=== PATIENT | male | born 1965 | race African-American/Black ===

== ENCOUNTER 2021-12-09 10:38 | Outpatient (CLI) | payer OTHER, SELFPAY ==
--- NOTE | 2021-12-09 11:15 | NEURO_ITS ---
Impression: # Complains of left thigh numbness. # Normal nerve conduction study with normal F-waves. # Normal needle/EMG exam. # Clinical correlation recommended. Nerve Conduction Studies Anti Sensory Summary Table Stim Site NR Peak (ms) P-T Amp (?V) Site1 Site2 Delta-P (ms) Dist (cm) Ranold (m/s) Left Sup Fibular Anti Sensory (Ant Lat Mall) 14 cm 3.1 12.5 14 cm Ant Lat Mall 3.1 16.0 52 Right Sup Fibular Anti Sensory (Ant Lat Mall) 14 cm 3.3 4.8 14 cm Ant Lat Mall 3.3 16.0 48 Left Sural Anti Sensory (Lat Mall) Calf 4.0 8.1 Calf Lat Mall 4.0 16.0 40 Right Sural Anti Sensory (Lat Mall) Calf 3.8 4.9 Calf Lat Mall 3.8 16.0 42 Motor Summary Table Stim Site NR Onset (ms) O-P Amp (mV) Site1 Site2 Delta-0 (ms) Dist (cm) Arnold (m/s) Left Peroneal Motor (Vastus Med) Ankle 4.5 1.6 Popit Ankle 9.6 43.0 45 Popit 14.1 1.1 Right Peroneal Motor (Vastus Med) Ankle 4.1 1.4 Popit Ankle 9.1 42.0 46 Popit 13.2 0.7 Left Tibial Motor (Abd Javier Brev) Ankle 4.9 2.8 Knee Ankle 10.5 45.0 43 Knee 15.4 1.4 Right Tibial Motor (Abd Javier Brev) Ankle 4.8 4.1 Knee Ankle 10.4 45.0 43 Knee 15.2 2.1 F Wave Studies NR F-Lat (ms) L-R F-Lat (ms) Left Peroneal (Mrkrs) (EDB) 56.29 0.79 Right Peroneal (Mrkrs) (EDB) 57.08 0.79 Left Tibial (Mrkrs) (Abd Hallucis) 56.45 1.34 Right Tibial (Mrkrs) (Abd Hallucis) 57.79 1.34 EMG Side Muscle Nerve Root Ins Act Fibs Amp Dur Recrt Comment Right AntTibialis Dp Br Fibular L4-5 Nml Nml Nml Nml Nml Right Gastroc Tibial S1-2 Nml Nml Nml Nml Nml Right Fibularis Long Sup Br Fibular L5-S1 Nml Nml Nml Nml Nml Right Flex Dig Long Tibial L5-S2 Nml Nml Nml Nml Nml Right Ext Dig Brev Dp Br Fibular L5, S1 Nml Nml Nml Nml Nml Left AntTibialis Dp Br Fibular L4-5 Nml Nml Nml Nml Nml Left Gastroc Tibial S1-2 Nml Nml Nml Nml Nml Left Fibularis Long Sup Br Fibular L5-S1 Nml Nml Nml Nml Nml Left Flex Dig Long Tibial L5-S2 Nml Nml Nml Nml Nml Left Ext Dig Brev Dp Br Fibular L5, S1 Nml Nml Nml Nml Nml Right QuadratusFem QuadFemoris L4-5, S1 Nml Nml Nml Nml Nml Left QuadratusFem QuadFemoris L4-5, S1 Nml Nml Nml Nml Nml MTDD
== END 2021-12-09 10:39 | disposition home or self-care (01) ==
LOC: ANHNEURO 10:42
PROVIDERS: Visit Provider Family Medicine
DX: R20.2 Paresthesia of skin (principal)
CPT/HCPCS: 95886; 95910